=== PATIENT | female | born 1990 | race Caucasian/White ===

== ENCOUNTER 2019-04-06 18:01 | Emergency (ER) | payer MEDICAID, OTHER ==
[~2019-04-06] VITALS: Ht 160 cm; Wt 57.2 kg
[~2019-04-06 18:01] MED LIST: NAPR-985 PO; ONDA4TAB14 PO
[2019-04-06 18:19] VITALS: Ht 160 cm; Wt 57.2 kg
[2019-04-06] MEDS ORDERED: SOD CHLORIDE 0.9% 1,000 ML IV STA (18:49)
[2019-04-06] MEDS ORDERED: DIPHENHYDRAMINE 50 MG INJ IV STA (18:49)
[2019-04-06] MEDS ORDERED: ONDANSETRON 4 MG INJ IV STA (18:49)
[2019-04-06] MEDS ORDERED: KETOROLAC 30 MG INJ IV STA (18:49)
[2019-04-06 21:45] VITALS: BP 100/62; PULSE 63; RESP 20
== END 2019-04-06 21:47 | disposition home or self-care (01) ==
LOC: FTE 18:01
DX: R51 Headache (principal); R11.0 Nausea
CPT/HCPCS: 36415; 80048; 81003; 81025; 85025; 96374; 96375; J1200; J1885; J2405; J7030; Z7502